=== PATIENT | male | born 1975 | race Caucasian/White ===

== ENCOUNTER 2024-05-18 00:19 | Emergency (ER) | payer SELFPAY ==
[2024-05-18 00:24] VITALS: BP 129/91
--- NOTE | 2024-05-18 01:25 | ED.GENMED ---
History of Present Illness
General
Chief Complaint: Male Genito-Urinary Symptoms
Source: patient
Time Seen by Provider: 05/18/24 00:48
History of Present Illness
History of Present Illness:
This patient is a 48-year-old male who presents emergency department with complaints that have been ongoing for some time. He states that he had a hernia repair on February 28, was seen in follow-up and was 'cleared' to resume normal activities. He
says he was doing some work and lifted something heavy and got severe pain in the right inguinal area. He was seen by his surgeon as well as an emergency department, was diagnosed with a seroma. He then was seen again by his surgeon because of
continued symptoms associated with urinary frequency and occasional urinary dribbling. He states he was told by the surgeon 'there is nothing more I can do'. He then saw a urologist and was diagnosed with BPH and started on doxycycline and Flomax.
He notes that his urinary symptoms have improved. He denies dysuria, fever, chills, flank pain, suprapubic pain. However, he now has developed ED and has continued discomfort in the right lower inguinal area. He saw [facility] surgeon and
is due to get an MRI regarding. At that time, he pointed out to the surgeon that there was a being just superior to the base of his penis on the right side that look like it was prominent. Tonight, the vein became even more prominent and he got
concerned that maybe he would develop a clot that could cause a PE which prompted his visit here. Patient denies testicular pain, rectal pain, nausea, vomiting, or other complaints.
Past History
Past History
ED Past Medical History: Other (glaucoma)
ED Past Surgical History: Other (Hernia)
Social History
Tobacco: Non-smoker
Alcohol: None
Drug: None
Personal:
Employment: Employed
Phy Exam
Physical Exam
Physical Exam:
GENERAL: Alert , in no apparent distress
EYE: pupils equal and reactive
NECK: Supple, no significant adenopathy.
ENT: o/p clr, mmm.
CARDIAC: Regular rate and rhythm .
LUNGS: Clear breath sounds bilaterally, no acute respiratory distress, no wheezes/rales/rhonchi
ABDOMEN: Soft, without focal tenderness, no r/g, no cvat
NEUROLOGICAL: Alert and oriented, no focal neuro deficits
SKIN: Warm and dry, skin intact.
MUSCULOSKELETAL: No edema, well perfused.
PSYCH: Normal and appropriate interaction.
: (James YANG present) nontender testicles bilaterally, no abnl noted of penis, no ttp noted of inguinal area. There is a sl prominent vein noted at base of penis, nontnder, small.
Course
Vital Signs
Initial and Last Documented VS:
Initial Vital Signs
Temp Pulse Resp BP Pulse Ox
98.3 F 73 20 129/91 98
05/18/24 00:24 05/18/24 00:24 05/18/24 00:24 05/18/24 00:24 05/18/24 00:24
Last Documented Vital Signs
Temp Pulse Resp BP Pulse Ox
98.3 F 73 20 129/91 100
05/18/24 00:24 05/18/24 00:24 05/18/24 00:24 05/18/24 00:24 05/18/24 01:08
Update Note
Update Note:
Patient presents to the Emergency Department with ____prominent vein in the area
Number and Complexity of Problems Addressed at the Encounter
� Chronic conditions affecting care:
� Acute Exacerbation and/or Progression of Chronic Illness:
� Differential Diagnosis includes: But not limited to varicocele, seroma, etc.
Amount and/or Complexity of Data to be Reviewed and Analyzed
� I performed an independent evaluation of and my interpretation is:
EKG:
CT:
Xrays:
Laboratory Studies:
Other:
� Review of other/old records reveals:
� Clinical information was obtained by an independent historian:
� Prescriptions/Medications Considered but not given:
� Further testing considered but not performed:
Risk of Complications and/or Morbidity or Mortality of Patient Management
� Social determinants of health affecting care:
� Discussion with other providers (PCP, Hospitalists, Consultants, etc):
� Escalation of care including admission/observation vs risk of discharge considered: Long discussion with patient, clinically I do not have concern for a clot in this superficial minimally prominent vein. I do believe he
requires enhanced evaluation as an outpatient which he is in the process of doing. I will refer him to both a neurologist as well. No clinical concern for testicular torsion, UTI, strangulated hernia, etc.
ED Attending Note
-
Portions of this chart may have been created with voice recognition software.� Occasional wrong word or��sound alike� substitutions may have occurred due to the inherent limitations of voice recognition software.
Discharge Plan
Departure
Patient Disposition: Home (Routine Discharge)
Date of Disposition: 05/18/24
Time of Disposition: 02:00
Patient with high blood pressure during this ER visit?: Yes
Condition: Good
Discharge Problem:
urinary frequency
Instructions: BLOOD PRESSURE
Referrals:
Daron Orantes MD [Family Provider] -
Valdo Murdock MD [Active] - Next open appointment
Activity Restrictions/Additional Instructions:
IF YOU DEVELOP FEVER, VOMITING, DIFFICULTY URINATING, BLEEDING, SWELLING, INCREASING/NEW PAIN, OR OTHER WORRISOME SIGNS, GO TO THE ER IMMEDIATELY!
Interventions
Interventions:
*Risk Screen - Suicide Last Done: 05/18/24 00:24
*General Assessment Last Done: 05/18/24 00:24
*Neglect/Abuse Screening Last Done: 05/18/24 00:24
ED- Fall Risk Assessment Last Done: 05/18/24 00:24
*ED COVID-19 Vaccine History Last Done: 05/18/24 00:24
ED-Male Genitourinary Assessment Last Done: 05/18/24 01:08
Discharge Date and Time
Print Language: DUTCH
== END 2024-05-18 02:05 | disposition home or self-care (01) ==
LOC: EMR 00:19
PROVIDERS: EMERGENCY PHYSICIAN Emergency Medicine; FAMILY PHYSICIAN Family Medicine
DX: R35.0 Frequency of micturition (principal); H40.9 Unspecified glaucoma
CPT/HCPCS: 99282

== ENCOUNTER 2024-06-02 13:45 | Emergency (ER) | payer OTHER, SELFPAY ==
[2024-06-02 14:00] VITALS: BP 121/83
--- NOTE | 2024-06-02 15:12 | ED.GENMED ---
History of Present Illness
<Marixa Gooden PA-C - Last Filed: 06/02/24 21:03>
General
Chief Complaint: Male Genito-Urinary Symptoms
Source: patient
Time Seen by Provider: 06/02/24 14:53
History of Present Illness
History of Present Illness:
49yoM with a history of a recent right inguinal hernia repair in February 2024 presenting for evaluation of difficulty urinating. Patient has been having ongoing right inguinal pain since March. He has also been having difficulty urinating and states he
is having urinary leakage. He has been seen multiple times by different urologists and general surgeons for his symptoms. He was placed on doxycycline about a month ago for possible prostatitis which he is almost complete with. He was also
prescribed Flomax which seemed to help his urinary leakage. He was seen by a new urologist 3 days ago and he was instructed to stop Flomax and to start a new medication, mirabegron, which he did not start due to fear of side effects. His urinary
leakage seems to have worsened since stopping the Flomax. He had an MRI of his pelvis last week which was reportedly normal although the report is not available for review. He also reports intermittent episodes of his penis becoming a purple color.
This seems to occur when he is sitting in his car and resolves after changing his position. He is worried that he may have a pudendal nerve injury or a possible blood flow issue to the penis. He is very frustrated with his symptoms and decided to
come to the ED for evaluation. He denies any fevers, vomiting, flank pain, testicular pain.
Past History
<Marixa Gooden PA-C - Last Filed: 06/02/24 21:03>
Past History
ED Past Medical History: Other (glaucoma)
ED Past Surgical History: Other (Hernia)
Social History
Tobacco: Non-smoker
Alcohol: None
Drug: None
Personal:
Employment: Employed
Phy Exam
<Marixa Gooden PA-C - Last Filed: 06/02/24 21:03>
General Physical Exam
General Presentation: well appearing
General age: appears stated age
General Skin: warm and dry
General Habitus: normal
General Mental: alert
Gastrointestinal Exam
Gastrointestinal Exam: soft, non distended and tender (Minimal tenderness in suprapubic region)
Genitourinary Exam Male
Exam Male: circumcised, no discharge, normal external genitalia, normal testicular exam, no evidence of trauma, no lesions and no testicular swelling
Skin Exam
Skin Exam: normal color and warm/dry
Psychiatric Exam
Psychiatric Exam: normal mood/affect
Course
<Marixa Gooden PA-C - Last Filed: 06/02/24 21:03>
Orders/Labs/Results
Orders:
Orders
06/02/24 14:54
Bladder Scan- Treatment ONCE
06/02/24 15:19
Urinalysis Reflex To Culture Urgent
Date Specimen was Collected: 06/02/24
Time Specimen was Collected: 14:56
Vital Signs
Initial and Last Documented VS:
Initial Vital Signs
Temp Pulse Resp BP Pulse Ox
36.6 C 96 16 121/83 98
06/02/24 14:00 06/02/24 14:00 06/02/24 14:00 06/02/24 14:00 06/02/24 14:00
Last Documented Vital Signs
Temp Pulse Resp BP Pulse Ox
36.6 C 91 18 123/74 99
06/02/24 14:00 06/02/24 17:41 06/02/24 17:41 06/02/24 17:41 06/02/24 17:41
<Ezra Galvez MD - Last Filed: 06/02/24 23:25>
Orders/Labs/Results
Orders:
Orders
06/02/24 14:54
Bladder Scan- Treatment ONCE
06/02/24 15:19
Urinalysis Reflex To Culture Urgent
Date Specimen was Collected: 06/02/24
Time Specimen was Collected: 14:56
Vital Signs
Initial and Last Documented VS:
Initial Vital Signs
Temp Pulse Resp BP Pulse Ox
36.6 C 96 16 121/83 98
06/02/24 14:00 06/02/24 14:00 06/02/24 14:00 06/02/24 14:00 06/02/24 14:00
Last Documented Vital Signs
Temp Pulse Resp BP Pulse Ox
36.6 C 91 18 123/74 99
06/02/24 14:00 06/02/24 17:41 06/02/24 17:41 06/02/24 17:41 06/02/24 17:41
<Marixa Gooden PA-C - Last Filed: 06/02/24 21:03>
MDM/Problems Addressed
Differential Diagnosis Includes:
49yoM here with R inguinal pain and difficulty urinating x several months since undergoing hernia repair surgery with mesh. Has been seen by multiple specialists for the same. Vitals stable and he is well appearing. External genitalia appears normal
on exam. Mild suprapubic tenderness present. Differential diagnosis includes but is not limited to: UTI, overflow incontinence, urinary retention, pain 2/2 mesh
Initial ED plan: Check PVR and UA. No indication for imaging at this time.
<Marixa Gooden PA-C - Last Filed: 06/02/24 21:03>
*Critical Care Note
Total Time (30-74mins, 75-104mins- exclusive of procedures): Not Applicable
<Marixa Gooden PA-C - Last Filed: 06/02/24 21:03>
Update Note
Update Note:
UA bland without microscopic hematuria or signs of infection. Postvoid residual is 0cc. No indication for further workup at this time. He was encouraged to f/u with urology. He is also planning on scheduling an appt with a pudendal math specialist
in [place]. He was discharged in stable condition.
ED Attending Note
<Marixa Gooden PA-C - Last Filed: 06/02/24 21:03>
-
Portions of this chart may have been created with voice recognition software.� Occasional wrong word or��sound alike� substitutions may have occurred due to the inherent limitations of voice recognition software.
<zEra Galvez MD - Last Filed: 06/02/24 23:25>
ED Attending Note
Patient seen and examined by attending physician: Yes
ED Attending Note:
I have seen and evaluated the patient with a [id number] encounter. I have spoken to the advance practicer provider and involved in the medical history, the physical exam, medical decision making.
Evaluation and management service: agree unless noted differently below.
Results interpretation: agree unless noted differently below.
Focused HPI: 49-year-old male with history as documented presents to the emergency room for evaluation of right groin pain and also some urinary difficulties. Patient is chiefly concerned because he says that since a right inguinal hernia repair
with mesh a few months ago he has been noticing some pain just to the right of the base of his penis in his groin and he says that when he stands he feels a small bump there. He also says that has been having some difficulty urinating over the past
few days. Has been seen by general surgery as well as urology, had been on Flomax but upon seeing urologist few days ago was told to discontinue this in favor of mirabegron. He also reports that he has been having some difficulty getting an
erection. He had a recent MRI as an outpatient which showed no significant lumbar disease, no muscular tears, no clear signs of a hernia.
Physical exam: Awake alert not in distress. Ambulatory with normal gait. No weakness in the legs. He has normal circumcised penis. No palpable hernia. No palpable mass in the area of concern. Normal testicular lie with no scrotal swelling.
Medical Decision Makin-year-old male presents for evaluation of groin discomfort since surgery in March also having some urinary issues. Already seen by general surgery (Dr. Crum) as well as urology. Urinalysis normal here, no postvoid
residual on bladder scan. Low suspicion for emergent pathology, stable for discharge to continue follow-up with specialist as outpatient.
Discharge Plan
Departure
Patient Disposition: Home (Routine Discharge)
Date of Disposition: 06/02/24
Time of Disposition: 18:16
Patient with high blood pressure during this ER visit?: No
Discharge Problem:
Groin pain
Referrals:
Daron Orantes MD [Family Provider] -
Jack Crum MD [Active] - Keep scheduled appt
Activity Restrictions/Additional Instructions:
Thank you for visiting the Emergency Department at [facility].
1. Please schedule a follow up appointment as directed. Call first thing tomorrow morning to make an appointment.
2. If indicated, please take your medications as instructed and indicated on discharge paperwork.
3. If any of your symptoms do not improve, or persist, or become more severe within 6-12 hours, please return to the emergency department for further care.
4. Please return to the emergency department if you develop a headache, neck pain/stiffness, fever greater than 100.4F, chest pain, shortness of breath, persistent nausea, vomiting, slurred speech, difficulty walking, numbness/tingling, weakness,
signs of infection or any other symptoms that are worrisome to you.
Please call [phone] if you have any questions.
Interventions
Interventions:
*Risk Screen - Suicide Last Done: 06/02/24 14:00
*General Assessment Last Done: 06/02/24 14:00
*Neglect/Abuse Screening Last Done: 06/02/24 14:00
ED- Fall Risk Assessment Last Done: 06/02/24 14:54
*Nursing Disposition Last Done: 06/02/24 18:18
ED-Male Genitourinary Assessment Last Done: 06/02/24 14:54
Discharge Date and Time
Discharge Date/Time: 06/02/24 18:38
Print Language: SPANISH
[2024-06-02 15:33] LABS: Urine Albumin Negative (Neg - Trace); Urine Bilirubin Negative (Negative); Urine Character Clear (Clear); Urine Color Yellow; Urine Glucose Negative (Negative); Urine Ketone Negative (Negative); Urine Leukocyte Negative (Negative); Urine Nitrite Negative (Negative); Urine Occult Blood Negative (Negative); Urine Urobilinogen Negative (Neg - 1+)
[2024-06-02 17:41] VITALS: BP 123/74
== END 2024-06-02 18:38 | disposition home or self-care (01) ==
LOC: EMR 13:45
PROVIDERS: Physician Assistant; EMERGENCY PHYSICIAN Emergency Medicine; FAMILY PHYSICIAN Family Medicine
DX: R10.31 Right lower quadrant pain (principal); R39.198 Other difficulties with micturition; H40.9 Unspecified glaucoma; Z88.5 Allergy status to narcotic agent
CPT/HCPCS: 99283; 51798; 81003

== ENCOUNTER 2024-06-04 08:48 | Emergency (ER) | payer SELFPAY ==
[2024-06-04 09:07] VITALS: BP 133/98
[2024-06-04 09:57] VITALS: BMI 23.4
[2024-06-04 10:03] VITALS: BP 122/86
--- NOTE | 2024-06-04 10:21 | ED.GENMED ---
History of Present Illness
General
Chief Complaint: Chest Pain
Source: patient
Exam Limitations: none
Time Seen by Provider: 06/04/24 10:02
Nursing documentation reviewed up to this point in time: agreed with
History of Present Illness
History of Present Illness:
49-year-old male presents the emergency department complaining of left lower quadrant abdominal pain, constipation and a panic attack. Pain began 3 days ago. He denies any chest pain at this time. The chest pain felt like previous panic attack.
He denies any chest pain at this time
Past History
Past History
ED Past Medical History: Other (glaucoma)
ED Past Surgical History: Other (Hernia)
Social History
Tobacco: Non-smoker
Alcohol: None
Drug: None
Personal:
Employment: Employed
Review of Systems
Review of Systems
Allergies reviewed?: Yes
All Other Systems: Not applicable
Constitutional: Reports no symptoms
EENT: Reports no symptoms
Respiratory: Reports no symptoms
Cardiac: Reports no symptoms
ABD/GI: Reports abdominal pain and constipated
: Reports no symptoms
Musculoskeletal: Reports no symptoms
Skin: Reports no symptoms
Neurological: Reports no symptoms
Endocrine: Reports no symptoms
Hematologic/Lymphatic: Reports no symptoms
Psychiatric: Reports anxiety
Phy Exam
Physical Exam
Physical Exam:
Physical Exam
General: no apparent distress, not acutely ill
Neck: supple. no meningeal signs. normal posterior pharynx
Heart: s1/s2 regular rate and rhythm, no murmur. equal radial
pulses.
HEENT: Pupils equal round reactive to light, EOMI
Lungs: no acute respiratory distress. clear bilaterally
Abdomen: normal bowel sounds. Left lower quadrant tenderness. No CVAT
Neuro: alert and oriented. no focal neurological deficits cranial nerves II through XII intact
Skin: no rash
Psychiatric: well kept. interactive and cooperative
Extremities: no edema. no calf tenderness. negative homans. good distal pulses
Scores
Heart Score for Chest Pain Patients
STEMI patient?: Not applicable
Course
Orders/Labs/Results
Orders:
Orders
06/04/24 08:50
ECG [Electrocardiogram (*1)] Urgent
Reason for Study: Chest Pain
EKG- Treatment ONCE
06/04/24 10:18
Iohexol [Omnipaque] See Protocol PO NOW STA
06/04/24 10:20
CT Abd/pel W Iv And Oral Contr Urgent
Comment:
Reason For Exam: LLQ abd pain 3 days
06/04/24 10:41
Complete Blood Count/With Diff Urgent
Comprehensive Metabolic Panel Urgent
Lipase Urgent
06/04/24 13:12
Urinalysis Reflex To Culture Urgent
Date Specimen was Collected: 06/04/24
Time Specimen was Collected: 12:56
Abnormal Lab Results
06/04/24
10:41
WBC 4.4 L 10^3/uL
(4.8-10.8)
Glucose 106 H mg/dl
(70-99)
Total Bilirubin 1.4 H mg/dl
(0.2-1.3)
06/04/24 10:41
06/04/24 10:41
Vital Signs
Initial and Last Documented VS:
Initial Vital Signs
Temp Pulse Resp BP Pulse Ox
98 F 81 18 133/98 99
06/04/24 09:07 06/04/24 09:07 06/04/24 09:07 06/04/24 09:07 06/04/24 09:07
Last Documented Vital Signs
Temp Pulse Resp BP Pulse Ox
98 F 62 14 121/80 99
06/04/24 09:07 06/04/24 12:53 06/04/24 12:53 06/04/24 15:09 06/04/24 15:10
MDM/Problems Addressed
Differential Diagnosis Includes:
Constipation, diverticulitis
MDM/Problems Addressed:
49-year-old male with left lower quadrant abdominal pain, likely due to constipation. CT abdomen pelvis pending.
*Radiology
Radiology exam reviewed: radiology read reviewed (ct a/p nad, multiple indeterminate splenic lesions)
*Pulse Oximetry
Patient hypoxic: no
*EKG
Interpreted by ED Provider?: Yes
EKG Intrepretation Date: 06/04/24
EKG Intrepretation Time: 08:56
Interpretation: normal
Comparison EKG: no comparison EKG present
Heart Rate: 84
Rate: normal
Rhythm: sinus
[place]: normal axis
Interval: normal interval
QRS Pattern: normal QRS
Ischemia: no ischemia
*Critical Care Note
Total Time (30-74mins, 75-104mins- exclusive of procedures): Not Applicable
Patient Management
Social determinants of health affecting care: Living situation
Escalation/DeEscalation of care consider admission/obs:
Admit not indicated
ED Attending Note
-
Portions of this chart may have been created with voice recognition software.� Occasional wrong word or��sound alike� substitutions may have occurred due to the inherent limitations of voice recognition software.
Discharge Plan
Departure
Patient Disposition: Home (Routine Discharge)
Date of Disposition: 06/04/24
Time of Disposition: 14:59
Patient with high blood pressure during this ER visit?: Yes
Condition: Good
Discharge Problem:
Abdominal pain
Instructions: Constipation, Adult ED, Abdominal pain in adults - Discharge instructions, BLOOD PRESSURE
Referrals:
Daron Orantes MD [Family Provider] - Call in 1-3 days for appt
Interventions
Interventions:
*Risk Screen - Suicide Last Done: 06/04/24 09:07
*General Assessment Last Done: 06/04/24 09:07
*Neglect/Abuse Screening Last Done: 06/04/24 09:07
ED- Fall Risk Assessment Last Done: 06/04/24 09:57
*ED COVID-19 Vaccine History Last Done: 06/04/24 09:57
*Nursing Disposition Last Done: 06/04/24 15:14
ED- Cardiac Assessment Last Done: 06/04/24 09:57
Discharge Date and Time
Discharge Date/Time: 06/04/24 15:14
Print Language: OCCITAN
[2024-06-04] MEDS: OMNIPAQUE 50 ML PO (10:33)
[2024-06-04 11:00] VITALS: BP 131/92
[2024-06-04 11:08] LABS: % Basophils 0.7 % (0-2); % Eosinophils 2.5 % (0-6); % Immature Granulocytes 0.5 % (0-0.5); % Lymphocytes 28.6 % (20.5-51.1); % Neutrophils 59.7 % (42.2-75.2); Absolute Eosinophils 0.1 10^3/uL (0-0.7); Absolute Lymphocytes 1.3 10^3/uL (1.2-3.4); Absolute Monocytes 0.4 10^3/uL (0.1-0.6); Absolute Neutrophils 2.6 10^3/uL (1.4-6.5); Hematocrit 39.8 % (39.0-52.0); Hemoglobin 14.2 g/dL (13.0-18.0); Mean Corp Hgb Conc. 35.7 g/dL (33.0-37.0); Mean Corpuscular Hgb 29.3 pg (27.0-31.0); Mean Corpuscular Volume 82.2 fL (80.0-94.0); Mean Platelet Volume 9.2 fL (7.4-10.4); Nucleated Red Blood Cells % 0 % (-); Platelet Count 194 10^3/uL (130-400); Red Blood Cell Count 4.84 10^6/uL (4.70-6.10); Red Cell Dist. Width 12.4 % (11.5-14.5); White Blood Cell Count 4.4 10^3/uL (4.8-10.8)
[2024-06-04 11:17] LABS: ALT (SGPT) 22 U/L (0-50); AST (SGOT) 23 U/L (17-59); Albumin 4.8 g/dl (3.5-5.0); Alkaline Phosphatase 46 U/L (38-126); Blood Urea Nitrogen 12 mg/dl (9-20); Calcium 10.2 mg/dl (8.4-10.2); Carbon Dioxide 29 mmol/L (22-30); Chloride 98 mmol/L (98-107); Estimated Creatinine Clearance 103 ml/min; Glucose 106 mg/dl (70-99); Lipase 104 U/L (23-300); Potassium 4.4 mmol/L (3.5-5.1); Sodium 136 mmol/L (135-145); Total Bilirubin 1.4 mg/dl (0.2-1.3); Total Protein 7.4 g/dl (6.3-8.2); eGFR > 60.00
[2024-06-04 13:44] LABS: Urine Albumin Negative (Neg - Trace); Urine Bilirubin Negative (Negative); Urine Character Clear (Clear); Urine Color Yellow; Urine Glucose Negative (Negative); Urine Ketone Negative (Negative); Urine Leukocyte Negative (Negative); Urine Nitrite Negative (Negative); Urine Occult Blood Negative (Negative); Urine Urobilinogen Negative (Neg - 1+)
[2024-06-04 15:09] VITALS: BP 121/80
== END 2024-06-04 15:14 | disposition home or self-care (01) ==
LOC: EMR 08:48
PROVIDERS: EMERGENCY PHYSICIAN Emergency Medicine; FAMILY PHYSICIAN Family Medicine
DX: R10.32 Left lower quadrant pain (principal); K59.00 Constipation, unspecified; F41.0 Panic disorder [episodic paroxysmal anxiety]; R07.9 Chest pain, unspecified; R03.0 Elevated blood-pressure reading, without diagnosis of hypertension; D73.9 Disease of spleen, unspecified; H40.9 Unspecified glaucoma; F41.9 Anxiety disorder, unspecified; Z88.5 Allergy status to narcotic agent
CPT/HCPCS: 99285; 74177; 80053; 81003; 83690; 85025; 93005; Q9967

== ENCOUNTER 2024-06-18 17:36 | Emergency (ER) | payer OTHER, SELFPAY ==
[2024-06-18 17:37] VITALS: BP 146/95
[2024-06-18 17:58] LABS: % Basophils 0.6 % (0-2); % Eosinophils 1.1 % (0-6); % Immature Granulocytes 0.3 % (0-0.5); % Lymphocytes 33.6 % (20.5-51.1); % Monocytes 6.8 % (1.7-9.3); % Neutrophils 57.6 % (42.2-75.2); Absolute Eosinophils 0.1 10^3/uL (0-0.7); Absolute Lymphocytes 2.2 10^3/uL (1.2-3.4); Absolute Monocytes 0.5 10^3/uL (0.1-0.6); Absolute Neutrophils 3.8 10^3/uL (1.4-6.5); Hematocrit 41.1 % (39.0-52.0); Hemoglobin 14.9 g/dL (13.0-18.0); Mean Corp Hgb Conc. 36.3 g/dL (33.0-37.0); Mean Corpuscular Hgb 28.9 pg (27.0-31.0); Mean Corpuscular Volume 79.8 fL (80.0-94.0); Mean Platelet Volume 9.3 fL (7.4-10.4); Nucleated Red Blood Cells % 0 % (-); Platelet Count 250 10^3/uL (130-400); Red Blood Cell Count 5.15 10^6/uL (4.70-6.10); Red Cell Dist. Width 12.2 % (11.5-14.5); White Blood Cell Count 6.6 10^3/uL (4.8-10.8)
[2024-06-18 18:15] LABS: ALT (SGPT) 22 U/L (0-50); AST (SGOT) 25 U/L (17-59); Albumin 5.1 g/dl (3.5-5.0); Alkaline Phosphatase 57 U/L (38-126); Blood Urea Nitrogen 9 mg/dl (9-20); Calcium 10.4 mg/dl (8.4-10.2); Carbon Dioxide 31 mmol/L (22-30); Chloride 100 mmol/L (98-107); Glucose 137 mg/dl (70-99); Potassium 4.2 mmol/L (3.5-5.1); Sodium 143 mmol/L (135-145); Total Protein 8.2 g/dl (6.3-8.2); eGFR > 60.00
[2024-06-18 18:25] LABS: Troponin I < 0.012 ng/ml
--- NOTE | 2024-06-18 18:54 | ED.GENMED ---
History of Present Illness
General
Chief Complaint: Headache
Source: patient
Exam Limitations: none
Time Seen by Provider: 06/18/24 18:08
Nursing documentation reviewed up to this point in time: agreed with
History of Present Illness
History of Present Illness:
Patient to ED with multiple complaints. States he had hernia repair surgery in the spring. 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 He has developed severe anxiety about this. A few weeks ago he was
admitted to a hospital in [place] due to left head numbness. States he was there for 2 days, had neg MRI and discharged. Today he reports left eye pressure. He has a history of glaucoma and is concerned about increased eye pressure. Also requesting
anxiety and sleep medication. Brought self to ED for eval.
Past History
Past History
ED Past Medical History: Other (glaucoma)
ED Past Surgical History: Other (Hernia)
Social History
Tobacco: Non-smoker
Alcohol: None
Drug: None
Personal:
Employment: Employed
Review of Systems
Review of Systems
Allergies reviewed?: Yes
All Other Systems: ROS reviewed and negative except as documented in HPI and ROS
Constitutional: Reports no symptoms
EENT: Reports other (left eye pressure)
Respiratory: Reports no symptoms
Cardiac: Reports no symptoms
ABD/GI: Reports no symptoms
Musculoskeletal: Reports no symptoms
Skin: Reports no symptoms
Neurological: Reports other (pudendalneuropathy)
Psychiatric: Reports no symptoms
Phy Exam
General Physical Exam
General Presentation: well appearing and no apparent distress
General age: appears stated age
General Skin: warm and dry
General Habitus: normal
General Mental: alert
General Hydration: appears well hydrated
Eye Exam
Eye Exam: PERRL, EOMI, conjunctiva normal, globe normal and other (Brown L15, R17)
Neurological Exam
Neurological Exam: alert, oriented x3, no motor deficits and normal gait
Musculoskeletal Exam
Musculoskeletal Exam: full ROM and neuro vasc intact
Skin Exam
Skin Exam: normal color, warm/dry and no rash
Psychiatric Exam
Psychiatric Exam: normal mood/affect
Course
Orders/Labs/Results
Orders:
Orders
06/18/24 17:41
Electrocardiogram (*1) Urgent
Reason for Study: Chest Pain
06/18/24 17:42
EKG- Treatment ONCE
06/18/24 17:51
Complete Blood Count/With Diff Urgent
Comprehensive Metabolic Panel Urgent
Troponin I Urgent
06/18/24 18:44
Tetracaine HCl [Tetracaine 0.5% Ophthalmic Solution] 1 drop .ROUTE .STK-MED ONE
Abnormal Lab Results
06/18/24
17:51
MCV 79.8 L fL
(80.0-94.0)
Carbon Dioxide 31 H mmol/L
(22-30)
Glucose 137 H mg/dl
(70-99)
Calcium 10.4 H mg/dl
(8.4-10.2)
Albumin 5.1 H g/dl
(3.5-5.0)
06/18/24 17:51
06/18/24 17:51
Vital Signs
Initial and Last Documented VS:
Initial Vital Signs
Temp Pulse Resp BP Pulse Ox
98.2 F 104 20 146/95 97
06/18/24 17:37 06/18/24 17:37 06/18/24 17:37 06/18/24 17:37 06/18/24 17:37
Last Documented Vital Signs
Temp Pulse Resp BP Pulse Ox
98.2 F 104 20 146/95 97
06/18/24 17:37 06/18/24 17:37 06/18/24 17:37 06/18/24 17:37 06/18/24 17:37
*Critical Care Note
Total Time (30-74mins, 75-104mins- exclusive of procedures): Not Applicable
Update Note
Update Note:
NO concerning findings on exam to day. Referred back to PCP for anxiety and sleep medications.
ED Attending Note
-
Portions of this chart may have been created with voice recognition software.� Occasional wrong word or��sound alike� substitutions may have occurred due to the inherent limitations of voice recognition software.
Discharge Plan
Departure
Patient Disposition: Home (Routine Discharge)
Date of Disposition: 06/18/24
Time of Disposition: 18:53
Patient with high blood pressure during this ER visit?: No
Condition: Good
Covid-19: Not Applicable
Discharge Problem:
Headache
Instructions: Headache, Adult (DC)
Referrals:
Daron Orantes MD [Family Provider] -
Interventions
Interventions:
*Risk Screen - Suicide Last Done: 06/18/24 18:05
*General Assessment Last Done: 06/18/24 18:05
*Neglect/Abuse Screening Last Done: 06/18/24 18:05
ED- Fall Risk Assessment Last Done: 06/18/24 18:05
*ED COVID-19 Vaccine History Last Done: 06/18/24 18:05
ED- Neurological Assessment Last Done: 06/18/24 18:05
Discharge Date and Time
Print Language: [id number]
== END 2024-06-18 19:01 | disposition home or self-care (01) ==
LOC: EMR 17:36
PROVIDERS: EMERGENCY PHYSICIAN Emergency Medicine; FAMILY PHYSICIAN Family Medicine
DX: R51.9 Headache, unspecified (principal); H40.9 Unspecified glaucoma
CPT/HCPCS: 99284; 80053; 84484; 85025; 93005

== ENCOUNTER 2024-06-28 18:47 | Emergency (ER) | payer OTHER, SELFPAY ==
[2024-06-28 18:48] VITALS: BMI 23.9
[2024-06-28 18:57] VITALS: BP 140/87
[2024-06-28 20:00] VITALS: BP 132/92
--- NOTE | 2024-06-28 21:02 | ED.GENMED ---
History of Present Illness
General
Chief Complaint: Anxiety
Source: patient
Exam Limitations: none
Time Seen by Provider: 06/28/24 20:29
History of Present Illness
History of Present Illness:
This is a 49 year old male that comes in with c/o his ear popping. States that he has been having panic attacks. States that his BP then goes up and his left ear is popping. States that this has been going on for 2-3 weeks and it happens 2-3 times
daily. States that he had a MRI of his brain and it was negative. States that he has left sided headache pain and he feels that his hearing is decreased. Denies any fever, chills, chest pain, SOB, abd pain, nausea, vomiting, diarrhea, dizziness,
urinary burning.
Past History
Past History
ED Past Medical History: Psychiatric (Anxiety)
ED Past Surgical History: Other (Hernia right side, Glaucoma sx as child)
Social History
Tobacco: Non-smoker
Alcohol: None
Drug: None
Personal:
Living: alone
Employment: Employed
Review of Systems
Review of Systems
All Other Systems: ROS reviewed and negative except as documented in HPI and ROS
Constitutional: Reports no symptoms; Denies fever or chills
EENT: Reports other (Left ear popping and feels that his hearing is changing)
Respiratory: Reports no symptoms; Denies cough or trouble breathing
Cardiac: Reports no symptoms; Denies chest pain
ABD/GI: Reports no symptoms; Denies abdominal pain, nausea, vomiting or diarrhea
: Reports no symptoms; Denies dysuria, frequency or urgency
Musculoskeletal: Reports no symptoms
Skin: Reports no symptoms
Neurological: Reports headache (Left sided); Denies dizzy
Psychiatric: Reports no symptoms
Phy Exam
General Physical Exam
General Presentation: well appearing and no apparent distress
General age: appears stated age
General Skin: warm and dry
General Habitus: normal
General Mental: alert
General Hydration: appears well hydrated
ENT Exam
ENT Exam: TM's normal, pharynx normal and neck supple
Eye Exam
Eye Exam: EOMI
Cardiovascular Exam
Cardiovascular Exam: regular rate/rhythm, no edema, no murmur and normal peripheral pulses
Pulmonary Exam
Pulmonary Exam: lungs clear, no respiratory distress, no rales, chest non tender, no crackles, no rhonchi, no wheezing and no cough
Gastrointestinal Exam
Gastrointestinal Exam: normal bowel sounds, non tender, soft, no organomegaly, no pulsatile mass and non distended
Musculoskeletal Exam
Musculoskeletal Exam: full ROM and no edema
Skin Exam
Skin Exam: normal color, warm/dry, no rash and no petechia
Psychiatric Exam
Psychiatric Exam: anxious
Course
Orders/Labs/Results
Orders:
Orders
06/28/24 20:52
CT Head W/o Iv Contrast Urgent
Comment:
Reason For Exam: lEFT SIDED HEAD PAIN, pAIN IN EAR
06/28/24 21:04
Acetaminophen [Tylenol] 1,000 mg PO NOW STA
Vital Signs
Initial and Last Documented VS:
Initial Vital Signs
Temp Pulse Resp BP Pulse Ox
98.2 F 89 18 140/87 98
06/28/24 18:57 06/28/24 18:57 06/28/24 18:57 06/28/24 18:57 06/28/24 18:57
Last Documented Vital Signs
Temp Pulse Resp BP Pulse Ox
98.2 F 70 22 132/92 100
06/28/24 18:57 06/28/24 20:00 06/28/24 20:00 06/28/24 20:00 06/28/24 20:00
MDM/Problems Addressed
Differential Diagnosis Includes:
Anxiety, Headache
MDM/Problems Addressed:
This is a 49 year old male that comes in with c/o left sided headache pain and his ear is popping. States that he feels that when his BP goes up his ear is popping.
Patient recently had an MRI that was normal. Explained that his TM is normal ad there is no sign of bulging. Feel that patient needs to follow up with the family doctor for his anxiety and will give patient the name of an ENT specialist for further
evaluation. Patient is concerned about his head and would like a CT even after tried to explained that the MRI was more diagnostic. Patient feels that this will help relieve his anxiety. Will get CT scan.
Back into see patient. Explained that the CT of his head is normal. There is some Left sided ethmoid sinus mucosal thickening. Will have patient try Sudafed to help decrease the pressure. Patient to follow up with the PCP for further evaluation and
treatment of his anxiety. Patient to return with any concerns.
Chronic conditions affecting care: Psychiatric illness
Acute Exacerbation and/or Progression of Chronic Illness: Psychiatric illness
*Radiology
Radiology exam reviewed: radiology read reviewed (CT head-No acute intracranial abnormality noted. )
*Pulse Oximetry
Patient hypoxic: no
*EKG
Interpreted by ED Provider?: NA
Rate: EKG- N/A
*Rail Director Interpretation
Rate: Rail Director- N/A
*Critical Care Note
Total Time (30-74mins, 75-104mins- exclusive of procedures): Not Applicable
ED Attending Note
-
Portions of this chart may have been created with voice recognition software.� Occasional wrong word or��sound alike� substitutions may have occurred due to the inherent limitations of voice recognition software.
Discharge Plan
Departure
Patient Disposition: Home (Routine Discharge)
Date of Disposition: 06/28/24
Time of Disposition: 22:01
Patient with high blood pressure during this ER visit?: Yes
Condition: Good
Covid-19: Not Applicable
Discharge Problem:
Anxiety, Left-sided headache
Instructions: Anxiety, Adult (DC), Headache, Adult ED, BLOOD PRESSURE
Referrals:
Daron Orantes MD [Family Provider] - Follow up in 2-3 days
Activity Restrictions/Additional Instructions:
As discussed, your CT of the head is negative for any acute process. There is some left sided ethmoid sinus inflammation and this may be causing your Ear popping. Please try using Sudafed to help dry up the sinuses. Follow up with the family doctor
for further evaluation and treatment of your anxiety. You may take Tylenol 1000mg every 8 hours for pain. IF YOU HAVE ANY OTHER CONCERNS PLEASE RETURN TO THE EMERGENCY ROOM.
Interventions
Interventions:
*Risk Screen - Suicide Last Done: 06/28/24 18:57
*General Assessment Last Done: 06/28/24 18:57
*Neglect/Abuse Screening Last Done: 06/28/24 18:57
*ED COVID-19 Vaccine History Last Done: 06/28/24 18:57
ED-Psychological Assessment Last Done: 06/28/24 21:13
Discharge Date and Time
Print Language: ARABIC
[2024-06-28] MEDS: TYLENOL 1000 MG PO (21:12)
== END 2024-06-28 22:40 | disposition home or self-care (01) ==
LOC: EMR 18:47
PROVIDERS: EMERGENCY PHYSICIAN Emergency Medicine; FAMILY PHYSICIAN Family Medicine
DX: F41.9 Anxiety disorder, unspecified (principal); R51.9 Headache, unspecified
CPT/HCPCS: 99284; 70450

== ENCOUNTER → 2024-08-27 13:00 | Outpatient (REF) | payer OTHER, SELFPAY | LOC: RAD 13:00 | PROVIDERS: ATTENDING PHYSICIAN Urology; FAMILY PHYSICIAN Family Medicine | DX: R39.198 Other difficulties with micturition (principal) | CPT/HCPCS: 72191; Q9967 ==

== ENCOUNTER 2024-11-10 12:36 | Emergency (ER) | payer OTHER, SELFPAY ==
[2024-11-10 12:42] VITALS: BP 119/79
[2024-11-10 13:19] LABS: % Basophils 1.2 % (0-2); % Eosinophils 3.7 % (0-6); % Immature Granulocytes 0.2 % (0-0.5); % Lymphocytes 36.5 % (20.5-51.1); % Monocytes 9.6 % (1.7-9.3); % Neutrophils 48.8 % (42.2-75.2); Absolute Basophils 0.1 10^3/uL (0-0.2); Absolute Eosinophils 0.2 10^3/uL (0-0.7); Absolute Lymphocytes 1.5 10^3/uL (1.2-3.4); Absolute Monocytes 0.4 10^3/uL (0.1-0.6); Hematocrit 43.4 % (39.0-52.0); Hemoglobin 15.2 g/dL (13.0-18.0); Mean Corpuscular Hgb 28.7 pg (27.0-31.0); Mean Platelet Volume 9.4 fL (7.4-10.4); Nucleated Red Blood Cells % 0 % (-); Platelet Count 240 10^3/uL (130-400); Red Blood Cell Count 5.29 10^6/uL (4.70-6.10); Red Cell Dist. Width 12.1 % (11.5-14.5); White Blood Cell Count 4.1 10^3/uL (4.8-10.8)
[2024-11-10 13:21] LABS: Urine Albumin Trace (Neg - Trace); Urine Bilirubin Negative (Negative); Urine Character Clear (Clear); Urine Color Yellow; Urine Glucose Negative (Negative); Urine Ketone Negative (Negative); Urine Leukocyte Negative (Negative); Urine Nitrite Negative (Negative); Urine Occult Blood Negative (Negative); Urine Specific Gravity 1.025 (<1.030); Urine Urobilinogen Negative (Neg - 1+)
[2024-11-10 13:27] LABS: ALT (SGPT) 35 U/L (0-50); AST (SGOT) 24 U/L (17-59); Albumin 5.1 g/dl (3.5-5.0); Alkaline Phosphatase 51 U/L (38-126); Blood Urea Nitrogen 15 mg/dl (9-20); Calcium 9.8 mg/dl (8.4-10.2); Carbon Dioxide 30 mmol/L (22-30); Chloride 98 mmol/L (98-107); Glucose 90 mg/dl (70-99); Potassium 4.3 mmol/L (3.5-5.1); Sodium 137 mmol/L (135-145); Total Bilirubin 1.1 mg/dl (0.2-1.3); Total Protein 8.2 g/dl (6.3-8.2); eGFR > 60.00
--- NOTE | 2024-11-10 13:55 | ED.GENMED ---
History of Present Illness
<Marixa Gooden PA-C - Last Filed: 11/11/24 07:20>
General
Chief Complaint: Abdominal Pain
Source: patient
Exam Limitations: none
Time Seen by Provider: 11/10/24 13:31
History of Present Illness
History of Present Illness:
49yoM with a history of a right inguinal hernia repair in February 2024 presenting for evaluation of abdominal pain and constipation. Patient has been having chronic pain in his right groin since March 2024. He has been seen by multiple surgeons for the
same and is scheduled to have his mesh removed next month in [place]. Over the past several months, he has been having issues with constipation. He states his stool is small in caliber. He has been taking Dulcolax and MiraLAX intermittently
without much relief. Last bowel movement was 3 days ago. Patient feels very bloated with increased belching. He is worried that he has a bowel obstruction. He denies any urinary retention, vomiting, fevers. Of note, patient had a CT abdomen in
September 2024 in [place] for concern for appendicitis and imaging was reportedly normal.
Past History
<Marixa Gooden PA-C - Last Filed: 11/11/24 07:20>
Past History
ED Past Medical History: Psychiatric (Anxiety)
ED Past Surgical History: Other (Hernia right side, Glaucoma sx as child)
Social History
Tobacco: Non-smoker
Alcohol: None
Drug: None
Personal:
Living: alone
Employment: Employed
Phy Exam
<Marixa Gooden PA-C - Last Filed: 11/11/24 07:20>
General Physical Exam
General Presentation: well appearing and no apparent distress
General age: appears stated age
General Skin: warm and dry
General Habitus: normal
General Mental: alert
ENT Exam
ENT Exam: normocephalic
Pulmonary Exam
Pulmonary Exam: no respiratory distress
Gastrointestinal Exam
Gastrointestinal Exam: soft, non distended and other (+Tenderness in the RLQ and mild tenderness in the upper abdomen. Abdomen soft, non-distended. No rebound or guarding. )
Neurological Exam
Neurological Exam: alert
Seth Coma Scale
Eye Opening: Spontaneous
Verbal Response: Oriented
Motor Response: Obeys Commands
GCS Total Score: 15
Skin Exam
Skin Exam: normal color and warm/dry
Psychiatric Exam
Psychiatric Exam: normal mood/affect
<Nikita Vance Jr., PA-C - Last Filed: 11/10/24 17:59>
Seth Coma Scale
GCS Total Score: 15
Course
<Marixa Gooden PA-C - Last Filed: 11/11/24 07:20>
Orders/Labs/Results
Orders:
Orders
11/10/24 12:56
Complete Blood Count/With Diff Urgent
Comprehensive Metabolic Panel Urgent
Urinalysis Reflex To Culture Urgent
Date Specimen was Collected: 11/10/24
Time Specimen was Collected: 12:45
11/10/24 13:52
CT Abd/pel W Iv And Oral Contr Urgent
Comment:
Reason For Exam: RLQ pain, constipation
Iohexol [Omnipaque] See Protocol PO NOW STA
Abnormal Lab Results
11/10/24
12:56
WBC 4.1 L 10^3/uL
(4.8-10.8)
Monocytes % 9.6 H %
(1.7-9.3)
Albumin 5.1 H g/dl
(3.5-5.0)
11/10/24 12:56
11/10/24 12:56
Vital Signs
Initial and Last Documented VS:
Initial Vital Signs
Temp Pulse Resp BP Pulse Ox
97.9 F 69 16 119/79 98
11/10/24 12:42 11/10/24 12:42 11/10/24 12:42 11/10/24 12:42 11/10/24 12:42
Last Documented Vital Signs
Temp Pulse Resp BP Pulse Ox
97.9 F 66 16 115/78 99
11/10/24 12:42 11/10/24 16:26 11/10/24 16:26 11/10/24 16:26 11/10/24 16:26
<Nikita Vance Jr., PA-C - Last Filed: 11/10/24 17:59>
Orders/Labs/Results
Orders:
Orders
11/10/24 12:56
Complete Blood Count/With Diff Urgent
Comprehensive Metabolic Panel Urgent
Urinalysis Reflex To Culture Urgent
Date Specimen was Collected: 11/10/24
Time Specimen was Collected: 12:45
11/10/24 13:52
CT Abd/pel W Iv And Oral Contr Urgent
Comment:
Reason For Exam: RLQ pain, constipation
Iohexol [Omnipaque] See Protocol PO NOW STA
Abnormal Lab Results
11/10/24
12:56
WBC 4.1 L 10^3/uL
(4.8-10.8)
Monocytes % 9.6 H %
(1.7-9.3)
Albumin 5.1 H g/dl
(3.5-5.0)
11/10/24 12:56
11/10/24 12:56
Vital Signs
Initial and Last Documented VS:
Initial Vital Signs
Temp Pulse Resp BP Pulse Ox
97.9 F 69 16 119/79 98
11/10/24 12:42 11/10/24 12:42 11/10/24 12:42 11/10/24 12:42 11/10/24 12:42
Last Documented Vital Signs
Temp Pulse Resp BP Pulse Ox
97.9 F 66 16 115/78 99
11/10/24 12:42 11/10/24 16:26 11/10/24 16:26 11/10/24 16:26 11/10/24 16:26
<Marixa Gooden PA-C - Last Filed: 11/11/24 07:20>
MDM/Problems Addressed
Differential Diagnosis Includes:
49yoM here with abd pain and constipation. Abd pain has been ongoing x several months. C/o feeling bloated. Last BM 3 days ago. He is worried about a blockage. VSS. He is well-appearing in no acute distress. No signs of peritonitis on abdominal
exam. Differential diagnosis includes but is not limited to: Constipation, chronic abdominal pain, SBO, appendicitis
Initial ED plan: Labs and UA obtained in triage which are overall unremarkable including normal white count and renal function. Will obtain CT abdomen with IV and p.o. contrast.
<Nikita Vance Jr., PA-C - Last Filed: 11/10/24 17:59>
*Critical Care Note
Total Time (30-74mins, 75-104mins- exclusive of procedures): Not Applicable
<Nikita Vance Jr., PA-C - Last Filed: 11/10/24 17:59>
Update Note
Update Note:
3702: Ted Vance PA-C following up with CT results. Patient very well-appearing no distress. Found to have some incidental findings of the spleen and pancreatic region. He was advised for close outpatient follow-up. He does claim that he has had
assessment for this in the past and they were considered benign. Otherwise he was given Bentyl for possible IBS will follow-up closely with his surgeon that previously did the inguinal mesh.
ED Attending Note
<Marixa Gooden PA-C - Last Filed: 11/11/24 07:20>
-
Portions of this chart may have been created with voice recognition software.� Occasional wrong word or��sound alike� substitutions may have occurred due to the inherent limitations of voice recognition software.
Discharge Plan
Departure
Patient Disposition: Home (Routine Discharge)
Date of Disposition: 11/10/24
Time of Disposition: 17:56
Patient with high blood pressure during this ER visit?: No
Condition: Good
Covid-19: Not Applicable
Discharge Problem:
Abdominal pain, Splenic lesion
Instructions: Abdominal Pain
Prescriptions:
New
dicyclomine 20 mg tablet
20 mg PO QID PRN (Reason: abdominal pain) Qty: 10 0RF
Referrals:
Daron Orantes MD [Family Provider] -
Activity Restrictions/Additional Instructions:
You came to the emergency department today with concerns of ongoing abdominal discomfort. You are found to have incidental findings of a lesion near the spleen and pancreas. Please follow closely for further assessment of this. Otherwise can try
Bentyl to help with symptoms. Please follow closely with your surgeon. Return for any worsening, new or concerning symptoms.
Interventions
Interventions:
*Risk Screen - Suicide Last Done: 11/10/24 12:42
*General Assessment Last Done: 11/10/24 15:11
*Neglect/Abuse Screening Last Done: 11/10/24 12:42
ED- Fall Risk Assessment Last Done: 11/10/24 15:11
*Nursing Disposition Last Done: 11/10/24 18:04
OP-Vnkuge-Mlactftneg Assessment Last Done: 11/10/24 15:02
Discharge Date and Time
Discharge Date/Time: 11/10/24 18:04
Print Language: SAMI
[2024-11-10] MEDS: OMNIPAQUE 50 ML PO (14:13)
[2024-11-10 16:26] VITALS: BP 115/78
== END 2024-11-10 18:04 | disposition home or self-care (01) ==
LOC: EMR 12:36
PROVIDERS: EMERGENCY PHYSICIAN Student in an Organized Health Care Education/Training Program; FAMILY PHYSICIAN Family Medicine
DX: R10.9 Unspecified abdominal pain (principal); D73.89 Other diseases of spleen; K59.00 Constipation, unspecified; F41.9 Anxiety disorder, unspecified
CPT/HCPCS: 99284; 74177; 80053; 81003; 85025; Q9967

== ENCOUNTER → 2025-05-01 12:58 | Outpatient (REF) | payer OTHER, SELFPAY | LOC: RAD 12:58 | PROVIDERS: FAMILY PHYSICIAN Family Medicine | DX: K40.90 Unilateral inguinal hernia, without obstruction or gangrene, not specified as recurrent (principal) | CPT/HCPCS: 72192 ==

== ENCOUNTER 2025-08-26 01:49 | Emergency (ER) | payer OTHER, SELFPAY ==
--- NOTE | 2025-08-26 04:28 | ED.GENMED ---
History of Present Illness
<Nasrin Grubbs DO - Last Filed: 08/26/25 04:39>
General
Chief Complaint: Male Genito-Urinary Symptoms
Time Seen by Provider: 08/26/25 04:11
<Dany Roberto MD, Resident - Last Filed: 08/26/25 04:41>
General
Source: patient
History of Present Illness
History of Present Illness:
Patient is a 50-year-old male with PMH of right inguinal hernia s/p repair, pelvic floor dysfunction, and constipation who presents to the [facility] ED with concern for urinary retention. Patient received a Botox injection to his pelvic floor
muscles in June. Patient just returned to the area from [place], and he states that his urologist wanted him to get checked for urinary retention after his flight. No current symptoms. Patient last urinated approximately 10 hours ago,
though he states he also has not been drinking any fluids since that time. Patient's bladder scan in the ED showed just 15 mL of urine.
Past History
<Dany Roberto MD, Resident - Last Filed: 08/26/25 04:41>
Past History
ED Past Medical History: Psychiatric (Anxiety), Other (Constipation) and Other (R inguinal hernia)
ED Past Surgical History: Other (Hernia right side, Glaucoma sx as child)
Social History
Tobacco: Non-smoker
Alcohol: None
Drug: None
Personal:
Living: alone
Employment: Employed
Review of Systems
<Dany Roberto MD, Resident - Last Filed: 08/26/25 04:41>
Review of Systems
Constitutional: Reports no symptoms
Respiratory: Reports no symptoms
Cardiac: Reports no symptoms
ABD/GI: Reports no symptoms
: Reports no symptoms
Phy Exam
<Dany Roberto MD, Resident - Last Filed: 08/26/25 04:41>
Physical Exam
Physical Exam:
General: NAD. Conversant. Lying comfortably in bed.
GI: Soft, nontender. Nondistended.
CV: RRR. S1, S2 noted. No M/R/G.
Pulm: CTAB. No wheezes or crackles. Breathing comfortably.
Neuro: A&O x 3. NFD. CN II through XII grossly intact.
Psych: Anxious.
Course
<Nasrin Grubbs, DO - Last Filed: 08/26/25 04:39>
Vital Signs
Initial and Last Documented VS:
Initial Vital Signs
Resp
16
08/26/25 02:00
Last Documented Vital Signs
Resp
16
08/26/25 02:00
<Dany Roberto MD, Resident - Last Filed: 08/26/25 04:41>
Vital Signs
Initial and Last Documented VS:
Initial Vital Signs
Resp
16
08/26/25 02:00
Last Documented Vital Signs
Resp
16
08/26/25 02:00
<Dany Roberto MD, Resident - Last Filed: 08/26/25 04:41>
MDM/Problems Addressed
Differential Diagnosis Includes:
Anxiety
Dehydration
Urinary retention
MDM/Problems Addressed:
Assessment: Patient is a 50-year-old male with PMH of R inguinal hernia s/p repair, pelvic floor dysfunction, and constipation who presents to the [facility] ED with concern for urinary retention, though he does not have any current symptoms. Last
urinated approximately 10 hours ago, though his fluid intake has been decreased. Bladder scan shows 15 mL of fluid. No concern for urinary retention at this time.
Plan:
#Decreased urine output
Bladder scan
<Dany Roberto MD, Resident - Last Filed: 08/26/25 04:41>
*Pulse Oximetry
Patient hypoxic: no
*Critical Care Note
Total Time (30-74mins, 75-104mins- exclusive of procedures): Not Applicable
ED Attending Note
<Nasrin Grubbs DO - Last Filed: 08/26/25 04:39>
ED Attending Note
Patient seen and examined by attending physician: Yes
I performed a history and physical exam of patient and discussed management with resident, I reviewed resident's note and agree with documented findings and plan of care.: Yes
ED Attending Note:
50-year-old gentleman with history of chronic lower abdominal pain after undergoing right inguinal hernia repair. Has been following with multiple specialist and neurologist. More recently underwent Botox injections to pelvic muscles in June
and since then he has had some chronic issues with urinary urgency and difficulty initiating urine stream. He had a visit with his urologist and patient states bladder scan at that time showed 150 mL. Not consistent with urinary retention however
there was concern for inability to completely empty.
He flew home today from [place] and admits that he purposely avoided drinking fluids as he was concerned for possible urinary retention. He currently denies abdominal pain nor denies the urge to to urinate.
Bladder scan upon arrival showed only 15 cc in his bladder.
50-year-old gentleman appears his stated age, awake and alert, pleasant, appears in no acute distress. Afebrile.
Abdomen is soft, nontender. No palpable masses.
Patient has been reassured that he is not retaining urine and in fact his bladder is empty.
Encouraged to stay well-hydrated on a daily basis and follow-up with urology.
<Dany Roberto MD, Resident - Last Filed: 08/26/25 04:41>
-
Portions of this chart may have been created with voice recognition software.� Occasional wrong word or��sound alike� substitutions may have occurred due to the inherent limitations of voice recognition software.
Discharge Plan
Departure
Prescriptions:
No Action
dicyclomine 20 mg tablet
20 mg PO QID PRN (Reason: abdominal pain) Qty: 10 0RF
Referrals:
Daron Orantes MD [Family Provider, Family Practice]
Interventions
Interventions:
*Risk Screen - Suicide Last Done: 08/26/25 01:55
*General Assessment Last Done: 08/26/25 01:55
*Neglect/Abuse Screening Last Done: 08/26/25 01:55
*ED- Fall Risk Assessment Last Done: 08/26/25 01:55
*ED COVID-19 Vaccine History Last Done: 08/26/25 01:55
*ED Influenza Vaccine History Last Done: 08/26/25 01:55
ED-Male Genitourinary Assessment Last Done: 08/26/25 02:33
Discharge Date and Time
Print Language: NIGERIAN
== END 2025-08-26 04:48 | disposition home or self-care (01) ==
LOC: EMR 01:49
PROVIDERS: EMERGENCY PHYSICIAN Emergency Medicine; FAMILY PHYSICIAN Family Medicine
DX: R39.198 Other difficulties with micturition (principal); G89.29 Other chronic pain; R10.30 Lower abdominal pain, unspecified; Z98.890 Other specified postprocedural states
CPT/HCPCS: 99283

== ENCOUNTER 2025-09-01 18:51 | Emergency (ER) | payer OTHER, SELFPAY ==
[2025-09-01 18:55] VITALS: BP 132/82
[2025-09-01 19:43] VITALS: BMI 26.9
--- NOTE | 2025-09-01 20:05 | ED.GENMED ---
History of Present Illness
General
Chief Complaint: Abdominal Pain
Source: patient
Exam Limitations: none
Time Seen by Provider: 09/01/25 19:20
Nursing documentation reviewed up to this point in time: agreed with
History of Present Illness
History of Present Illness:
Note:
CHIEF COMPLAINT(S)
Severe pelvic pain and difficulty urinating.
HISTORY OF PRESENT ILLNESS
The patient is a 50-year-old male with a history of hernia mesh surgery, who presents with severe pelvic pain and difficulty urinating. He reports a longstanding issue following a hernia mesh placement, which was subsequently removed. The patient
describes experiencing severe pain related to his pudendal nerve, stating that certain movements can trigger worsened symptoms. He reports, 'Its like constricted, like this really bad...you get pain like shooting out.'
Approximately two years ago, the patient consulted an expert on the pudendal nerve, and recently received Botox injections and nerve blocks to alleviate symptoms. However, two to three days after these injections, he began experiencing urinary
retention. The patient states he 'was emptying my bladder 100% before but started to have urinary retention' following treatment. A urologist in [place] performed a urodynamic study and confirmed the absence of adequate bladder contractions,
attributing it to prior bladder spasms and weakened muscle tone from the hernia mesh issue. Despite this, the patient was previously able to void completely by sitting on the toilet.
The patient is currently pushing hard to urinate with minimal success, describing the effort as trying to 'push a thousand-pound block up the wall.' He experiences only small amounts of urine flow. The patient suspects his external urethral
sphincter is tightened due to involvement of the pudendal nerve, saying, 'I probably have a really tight external urethral sphincter because thats what the pudendal nerve does.'
Upon arrival at the hospital, the patient reports pain radiating from his pelvis and significant difficulty urinating, despite being advised previously by the urologist to self-catheterize if necessary. He admits to not frequently self-catheterizing
following the urologists demonstration. Recent fluid intake is minimal due to dehydration. The patient was last assessed five days ago for similar complaints but was not found to have significant urinary retention.
MEDICATIONS
The patient is currently taking 4 mg tizanidine to help manage nerve-related pain.
REVIEW OF SYSTEMS
- Genitourinary: Reports severe difficulty with urination and potential urinary retention.
- Musculoskeletal: Severe pelvic pain associated with pudendal nerve issues.
- Neurological: Pudendal neuralgia with resultant pain exacerbated by movement.
PHYSICAL EXAM
General: Alert, no acute distress.
Skin: Warm, dry.
Head: Normocephalic, atraumatic.
Neck: Supple, trachea midline.
Eye Ears, nose, mouth and throat: Oral mucosa moist.
Cardiovascular: Normal peripheral perfusion, no edema.
Respiratory: Respirations are non-labored.
Gastrointestinal: Abdomen nondistended.
Back: Normal range of motion, normal alignment.
Musculoskeletal: Normal range of motion, normal strength.
Neurological: Alert and oriented to person, place, time, and situation. No focal neurological deficit observed.
Psychiatric: Cooperative, appropriate mood and affect.
PROBLEM LIST
- Acute: Severe pelvic pain, urinary retention
- Chronic: Pudendal neuralgia post-hernia mesh surgery
PLAN
- Perform a bladder scan to assess for urinary retention and volume.
- Evaluate the possibility of additional medication options for nerve pain.
- Discuss potential further management strategies with the urologist team, taking into account the patients complex urological and neurologic presentations.
DIFFERENTIAL DIAGNOSIS
The Differential Diagnosis includes, in no particular order and is not limited to:
1. Pudendal neuralgia
2. Post-surgical adhesions
3. Urinary tract obstruction
4. Neurogenic bladder dysfunction
5. Bladder outlet obstruction
6. Urethral stricture
7. Bladder atony
8. Inguinal neuropathy secondary to surgery
9. Nerve entrapment syndrome
10. Chronic pelvic pain syndrome
CARE-UPDATE
11/16/25 - 21:37
Patient continues to experience urinary hesitancy and urgency. No significant urinary retention noted. Patient is cleared for discharge and advised to follow up with urology for further management.
Disposition:
SUMMARY OF ENCOUNTER
The patient, a 50-year-old male with a complex history related to hernia mesh surgery and resulting pudendal neuralgia, presented to the emergency department with complaints of severe pelvic pain and difficulty urinating. He described substantial
issues with urinary retention, suspecting pudendal nerve involvement affecting his external urethral sphincter. A bladder scan showed he retained about 100 ml of urine, which was not significant for acute retention needing in-hospital intervention.
Given the stable findings and absence of acute distress, the management focused on symptomatic relief and careful monitoring, with instructions for follow-up with his urologist.
DISPOSITION
Discharge.
ASSESSMENT
This patient presents with symptoms suggestive of neurogenic bladder dysfunction secondary to pudendal neuralgia and post-surgical complications. No evidence of acute urinary retention or urinary tract infection was noted.
PLAN
- Discharge home with instructions to monitor symptoms and hydrate adequately.
- Follow up with the urologist for further evaluation and long-term management of urinary symptoms.
PATIENT EDUCATION AND COUNSELING
The patient was advised on the nature of his symptoms, the potential involvement of the pudendal nerve, and the need for ongoing management with his urologist. Instructions on recognizing signs of worsening urinary retention or complications were
provided.
FOLLOW-UP INSTRUCTIONS
The patient is instructed to follow up with the urology department for further management. Return precautions were given in case of significant changes in urinary function or increasing pain.
MEDICAL DECISION MAKING
- Number and Complexity of Problems Addressed:
Chronic conditions affecting care include pudendal neuralgia and previous hernia mesh complications. Differential diagnoses considered included pudendal neuralgia, post-surgical adhesions, urinary tract obstruction, neurogenic bladder dysfunction,
bladder outlet obstruction, urethral stricture, bladder atony, inguinal neuropathy secondary to surgery, nerve entrapment syndrome, and chronic pelvic pain syndrome.
- Data:
Category 1
Non-emergency department records and previous urological assessments were reviewed. External urologic evaluations confirming previous bladder studies were likely considered in management.
Category 3
Discussion of management with the urology team referral for sustained care outside the emergency department was suggested.
DIAGNOSIS
- Neurogenic bladder dysfunction (ICD-10: N31.9)
- Pudendal neuralgia (ICD-10: G54.6)
- Urinary retention, unspecified (ICD-10: R33.9)
Past History
Past History
ED Past Medical History: Psychiatric (Anxiety), Other (Constipation) and Other (R inguinal hernia)
ED Past Surgical History: Other (Hernia right side, Glaucoma sx as child)
Social History
Tobacco: Non-smoker
Alcohol: None
Drug: None
Personal:
Living: alone
Employment: Employed
Phy Exam
Physical Exam
Physical Exam:
.
Course
Orders/Labs/Results
Orders:
Orders
09/01/25 20:30
Urinalysis Reflex To Culture Urgent
Date Specimen was Collected: 09/01/25
Time Specimen was Collected: 20:29
Vital Signs
Initial and Last Documented VS:
Initial Vital Signs
Temp Pulse Resp BP Pulse Ox
98.5 F 97 15 132/82 98
09/01/25 18:55 09/01/25 18:55 09/01/25 18:55 09/01/25 18:55 09/01/25 18:55
Last Documented Vital Signs
Temp Pulse Resp BP Pulse Ox
98.5 F 76 18 126/72 96
09/01/25 18:55 09/01/25 21:46 09/01/25 21:46 09/01/25 21:46 09/01/25 21:46
*Pulse Oximetry
SaO2: 98
Oxygen Mode of Delivery: Room air
Patient hypoxic: no
*Critical Care Note
Total Time (30-74mins, 75-104mins- exclusive of procedures): Not Applicable
ED Attending Note
-
Portions of this chart may have been created with voice recognition software.� Occasional wrong word or��sound alike� substitutions may have occurred due to the inherent limitations of voice recognition software.
Discharge Plan
Departure
Patient Disposition: Home (Routine Discharge)
Date of Disposition: 09/01/25
Time of Disposition: 21:35
Patient with high blood pressure during this ER visit?: Yes
Condition: Good
Discharge Problem:
Urinary urgency
Instructions: BLOOD PRESSURE
Prescriptions:
No Action
dicyclomine 20 mg tablet
20 mg PO QID PRN (Reason: abdominal pain) Qty: 10 0RF
Referrals:
Daron Orantes MD [Family Provider, Family Practice]
Wu Gamez MD [Active, Urology]
Interventions
Interventions:
*Risk Screen - Suicide Last Done: 09/01/25 18:55
*General Assessment Last Done: 09/01/25 18:55
*Neglect/Abuse Screening Last Done: 09/01/25 18:55
*ED- Fall Risk Assessment Last Done: 09/01/25 19:28
*ED COVID-19 Vaccine History Last Done: 09/01/25 18:55
*ED Influenza Vaccine History Last Done: 09/01/25 18:55
*Nursing Disposition Last Done: 09/01/25 21:46
XA-Tzqpku-Ozlfwqpoqr Assessment Last Done: 09/01/25 19:28
Discharge Date and Time
Discharge Date/Time: 09/01/25 22:00
Print Language: YORUBA
[2025-09-01 20:38] LABS: Urine Character Clear (Clear)
[2025-09-01 21:46] VITALS: BP 126/72
== END 2025-09-01 22:00 | disposition home or self-care (01) ==
LOC: EMR 18:51
PROVIDERS: EMERGENCY PHYSICIAN Emergency Medicine; FAMILY PHYSICIAN Family Medicine
DX: R39.15 Urgency of urination (principal); R03.0 Elevated blood-pressure reading, without diagnosis of hypertension
CPT/HCPCS: 99283; 81003

== ENCOUNTER 2025-09-03 23:53 | Emergency (ER) | payer OTHER, SELFPAY ==
[2025-09-03 23:56] VITALS: BP 116/81
--- NOTE | 2025-09-04 03:07 | DOWNTIME ---
There was a [employer] Downtime on 09/04/2025 from 0100 to 09/04/2025 at 0255. Downtime documentation of patient's care, including medication administrations, has been reconciled in the electronic record per guidelines. Refer to the
patient's paper chart under the miscellaneous tab to see printed paper medication records and downtime forms.
--- NOTE | 2025-09-04 03:28 | ED.GENMED ---
History of Present Illness
General
Chief Complaint: Male Genito-Urinary Symptoms
Source: patient
Exam Limitations: none
Time Seen by Provider: 09/04/25 03:09
Nursing documentation reviewed up to this point in time: agreed with
History of Present Illness
History of Present Illness:
Note:
CHIEF COMPLAINT(S)
Pelvic pain, urinary retention, bladder dysfunction, and penile pain following Botox injections.
HISTORY OF PRESENT ILLNESS
The patient is a 50-year-old male with a history of problems related to an inguinal hernia mesh, presenting with pelvic pain, urinary retention, and bladder dysfunction. He reports that historically he has experienced swelling and overactivity in
the bladder, leading to difficulties with urination, penile swelling, and episodes described as priapism. He initially developed these symptoms following mesh implant issues.
The patient underwent Botox injections (400 units) into the obturator muscle, trigone muscle, and bilateral pelvic floor muscles for treatment. He noted improvement initially, but subsequently, he experienced urinary retention and could not urinate
effectively. Following these injections, he also developed continuous urethral urgency and a lack of sensation in the bladder. He is on laxatives due to a long-standing inability to pass stool, indicated as an organic cause for constipation.
The patient has consulted multiple specialists, including in [place], [place], [facility], and a urologist in [place], but finds his current condition incapacitating, especially the pain when sitting and the inability to urinate
effectively. His symptoms have included pudendal neuralgia and pelvic floor dysfunction. He was advised by a urologist to hydrate well and has been advised also on potential further urologic interventions, such as InterStim.
The patient expresses severe pain and distress, especially when sitting, feeling consistent urgency in the urethra, and has sought further investigation options, such as MRI, for pudendal neuralgia. Despite ongoing care and consultations, the
patients symptoms remain disabling.
SOCIAL DETERMINANTS AFFECTING HEALTH
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 He expresses
the need for continuous support and transportation assistance due to the severity of his symptoms.
REVIEW OF SYSTEMS
- Genitourinary: Swelling of the penis, urinary retention, lack of bladder sensation, continuous urgency in the urethra, priapism episodes post-treatment
- Gastrointestinal: Chronic constipation managed with laxatives, inability to pass stool for several days
- Musculoskeletal: Severe pelvic and lower abdominal pain, increased on sitting
- Neurological: Symptoms consistent with pudendal neuralgia
PHYSICAL EXAM
General: Alert, experiencing chronic severe pain.
Skin: Warm, dry.
Head: Normocephalic, atraumatic.
Neck: Supple, trachea midline.
Eye Ears, nose, mouth and throat: Oral mucosa moist.
Cardiovascular: Normal peripheral perfusion, No edema.
Respiratory: Respirations are non-labored.
Gastrointestinal : Abdomen nondistended. No tenderness to palpation in all quadrants. Good bowel sounds
Back: Normal range of motion, Normal alignment.
Musculoskeletal: Limited ROM due to pain, especially when sitting.
Neurological: Alert and oriented, pain noted in distribution of pudendal nerve.
Psychiatric: Cooperative, mood reflective of chronic pain distress.
PROBLEM LIST
Acute Problems:
- Pelvic pain associated with pudendal neuralgia
- Urinary retention and bladder dysfunction post-Botox injection
- Priapism episodes
Chronic Problem:
- Inguinal hernia mesh complications
PLAN
1. Encourage hydration to ensure diuresis and prevent further urinary retention.
2. Reevaluate with urologist for potential advanced interventions, including consideration of InterStim.
3. Consideration of imaging such as MRI for detailed assessment of pelvic structures and potential pudendal nerve involvement.
4. Continuation of laxatives for constipation management.
5. Referral to pain management specialists for pudendal neuralgia symptoms.
6. Discuss transportation assistance for medical appointments due to the inability to sit comfortably.
DIFFERENTIAL DIAGNOSIS
The Differential Diagnosis includes, in no particular order and is not limited to:
- Pudendal neuralgia
- Pelvic floor dysfunction
- Urinary tract infection
- Bladder outlet obstruction
- Post-Botox injection complications
- Mesh-related nerve involvement
- Interstitial cystitis
- Prostatitis
- Urethral stricture
- Chronic constipation-related pelvic pain
Disposition:
SUMMARY OF ENCOUNTER
A 50-year-old male presented to the emergency department with difficulty urinating. The patient has a history of surgery that has resulted in intermittent urinary retention. Upon arrival, the patient had a bladder scan, and several scans were done
by the nursing staff, revealing post-void residuals (PVR) of less than 40 mL on all scans. The patient has visited the emergency department multiple times over the past few weeks and has been under the care of a urologist. He was due for a follow-up
with his urologist in [facility]. Despite his symptoms, the patient refuses further catheterization at this time.
PLAN
The patient is encouraged to follow up with his urologist as scheduled to manage his ongoing urinary retention issues.
MEDICAL DECISION MAKING
-Number and Complexity of Problems Addressed: Chronic conditions affecting care. Past medical history includes previous surgery and pudendal neuralgia. Differential diagnosis includes pudendal neuralgia, pelvic floor dysfunction, urinary tract
infection, bladder outlet obstruction, post-surgical complications, and interstitial cystitis.
- Risk: Consideration of admission/observation was part of the patients management plan given the complexity and risk of his urinary retention. However, the clinical decision was to proceed with outpatient management in conjunction with a follow-up
urologic evaluation.
DIAGNOSIS
- Urinary retention post-surgery (R33.8)
- Pudendal neuralgia (G58.8)
Past History
Past History
ED Past Medical History: Psychiatric (Anxiety), Other (Constipation) and Other (R inguinal hernia)
ED Past Surgical History: Other (Hernia right side, Glaucoma sx as child)
Social History
Tobacco: Non-smoker
Alcohol: None
Drug: None
Personal:
Living: alone
Employment: Employed
Phy Exam
Physical Exam
Physical Exam:
.
Course
Vital Signs
Initial and Last Documented VS:
Initial Vital Signs
Temp Pulse Resp BP Pulse Ox
97.9 F 91 20 116/81 98
09/03/25 23:56 09/03/25 23:56 09/03/25 23:56 09/03/25 23:56 09/03/25 23:56
Last Documented Vital Signs
Temp Pulse Resp BP Pulse Ox
97.9 F 91 20 116/81 98
09/03/25 23:56 09/03/25 23:56 09/03/25 23:56 09/03/25 23:56 09/03/25 23:56
*Pulse Oximetry
SaO2: 98
Oxygen Mode of Delivery: Room air
Patient hypoxic: no
*Critical Care Note
Total Time (30-74mins, 75-104mins- exclusive of procedures): Not Applicable
ED Attending Note
-
Portions of this chart may have been created with voice recognition software.� Occasional wrong word or��sound alike� substitutions may have occurred due to the inherent limitations of voice recognition software.
Discharge Plan
Departure
Patient Disposition: Home (Routine Discharge)
Date of Disposition: 09/04/25
Time of Disposition: 03:30
Patient with high blood pressure during this ER visit?: Yes
Discharge Problem:
Pudendal neuralgia
Instructions: BLOOD PRESSURE, Nerve blocks
Prescriptions:
No Action
dicyclomine 20 mg tablet
20 mg PO QID PRN (Reason: abdominal pain) Qty: 10 0RF
Referrals:
Daron Orantes MD [Family Provider, Family Practice]
Activity Restrictions/Additional Instructions:
Thank You for choosing [facility].
It was a pleasure meeting you and taking part in your care. We hope for your continued healing and wellness.
Please read discharge instructions in their entirety. However, they are for general education and may not describe your exact diagnosis at discharge. Information on your ER visit and medical conditions were discussed with you along with appropriate
follow up information...
If indicated, please take your medications as instructed and indicated on discharge paperwork.
Please schedule a follow up appointment as directed. Call to schedule an appointment
Please return to the emergency department with ANY change in, persisting, or worsening of symptoms. If any of your symptoms do not improve, or persist, or become more severe within 6-12 hours, please return to the emergency department for further
care.
Please return to the emergency department if you develop a headache, neck pain/stiffness, fever greater than 100.4F, chest pain, shortness of breath, persistent nausea, vomiting, slurred speech, difficulty walking, numbness/tingling, weakness, signs
of infection or any other symptoms that are worrisome to you.
If you have any questions or concerns please do not hesitate to call the Hospital at .
Interventions
Interventions:
*Risk Screen - Suicide Last Done: 09/03/25 23:56
*General Assessment Last Done: 09/03/25 23:56
*Neglect/Abuse Screening Last Done: 09/03/25 23:56
*ED- Fall Risk Assessment Last Done: 09/03/25 23:56
*ED COVID-19 Vaccine History Last Done: 09/03/25 23:56
*ED Influenza Vaccine History Last Done: 09/03/25 23:56
ED-Male Genitourinary Assessment Last Done: 09/04/25 01:30
Discharge Date and Time
Print Language: FIJIAN
[2025-09-04 03:43] VITALS: BP 117/74
== END 2025-09-04 03:44 | disposition home or self-care (01) ==
LOC: EMR 23:53
PROVIDERS: EMERGENCY PHYSICIAN Student in an Organized Health Care Education/Training Program; FAMILY PHYSICIAN Family Medicine
DX: M79.2 Neuralgia and neuritis, unspecified (principal); R33.9 Retention of urine, unspecified; N48.89 Other specified disorders of penis; Z98.890 Other specified postprocedural states
CPT/HCPCS: 99283

== ENCOUNTER 2025-09-08 10:01 | Emergency (ER) | payer OTHER, SELFPAY ==
[2025-09-08] VITALS (7 sets, daily range): BP systolic 117–127; BP diastolic 76–92; BMI 23.0
--- NOTE | 2025-09-08 10:41 | EDRN ---
I. Nadja MENEZES in room w/ pt. Pt states he does not feel his bladder when full and unable to empty his bladder. Pt inc when standing and bowel issues as well. Pt had hernia mesh placed that started the symptoms and was treated for bowel and
bladder issues w/ botox and vibrator/electric shock and dietary/laxatives regimen. Pt post RX was urinating fine w/ emptying bladder, good function all well until 07/11 this year. Pt saw a pelvic floor urinary commercial real estate broker and another urologist in
[place], thought urine mesh part still inside pt, had urodynamic study. Pt unable to void standing. All well with bladder per urologist in [place]. pt had a uroscopy and cystoscopy. Pt got botox back in Nov. Last botox given in different area in Jun w/
epidural injections/blocks and pt next day got pain in ishial spine. Pt has urinary retention. Pt has no sensation afterwards on penus outside. Pt here for possible urinary reptention. Pt is also here now for no BM x 3 days, eating and drinking
though very little. Pain also in abdomen, N/V, and distension w/ abdomen hard. Pt also has lower back pain. Pt usually has BM every day.
[2025-09-08 11:17] LABS: Hematocrit 39.8 % (39.0-52.0); Hemoglobin 13.7 g/dL (13.0-18.0); Mean Corp Hgb Conc. 34.4 g/dL (33.0-37.0); Mean Corpuscular Volume 81.7 fL (80.0-94.0); Nucleated Red Blood Cells % 0 % (-); Platelet Count 186 10^3/uL (130-400); Red Cell Dist. Width 12.3 % (11.5-14.5)
[2025-09-08 11:32] LABS: ALT (SGPT) 20 U/L (0-50); AST (SGOT) 20 U/L (17-59); Albumin 4.6 g/dl (3.5-5.0); Alkaline Phosphatase 41 U/L (38-126); Blood Urea Nitrogen 9 mg/dl (9-20); Calcium 9.3 mg/dl (8.4-10.2); Carbon Dioxide 30 mmol/L (22-30); Chloride 103 mmol/L (98-107); Estimated Creatinine Clearance 102 ml/min; Glucose 98 mg/dl (70-99); Lipase 367 U/L (23-300); Potassium 3.9 mmol/L (3.5-5.1); Sodium 138 mmol/L (135-145); Total Protein 7.5 g/dl (6.3-8.2); eGFR > 60.00
--- NOTE | 2025-09-08 12:30 | ED.GENMED ---
History of Present Illness
General
Chief Complaint: Male Genito-Urinary Symptoms
Source: patient
Exam Limitations: none
Time Seen by Provider: 09/08/25 10:28
Nursing documentation reviewed up to this point in time: agreed with
History of Present Illness
History of Present Illness:
The patient is a 50-year-old male with a history of hernia mesh surgery, who presents with inability to urinate, 'urine retention and pelvic floor dysfunction.'
He states that he started having issues with urinary incontinence since the hernia mesh surgery, but without retention. He experienced improved urinary function after dietary changes and biofeedback therapy. However, after receiving a pudendal nerve
block and a Botox injection to treat suspected residual hernia mesh complications, he experienced new onset of urinary retention and sensory loss in the penis. The urinary retention started the day after the procedure. The patient underwent
urodynamic studies confirming a lack of bladder contraction force and was advised to self-catheterize due to these findings. He was provided supplies to do this but he states he cannot self catheterize due to 'the nerve that supplies the 'external
urethral sphincteris too tight' and it's too painful.
He states he has to bear down so much to urinate it's causing him abdominal pain and affecting his bowels, reporting constipation for the past three days. feeling as if he can't have a bowel movement.
He denies fever/chills, denies n/v.
Past History
Past History
ED Past Medical History: Psychiatric (Anxiety), Other (Constipation) and Other (R inguinal hernia)
ED Past Surgical History: Urological (Pudendal nerve block, Botox injection, 'disynergetic defecation') and Other (Hernia right side, Glaucoma sx as child)
Social History
Tobacco: Non-smoker
Alcohol: None
Drug: None
Personal:
Living: alone
Employment: Employed
Review of Systems
Review of Systems
Allergies reviewed?: Yes
All Other Systems: ROS reviewed and negative except as documented in HPI and ROS
Phy Exam
Physical Exam
Physical Exam:
GENERAL: No acute distress. A&Ox3.
CONSTITUTIONAL: Afebrile.
EYES: clear, conjunctivae normal
ENMT: moist mucus membranes, Pharynx nl
RESPIRATORY: Regular respirations, nonlabored, lungs clear.
CARDIOVASCULAR: Regular rate and rhythm, no murmurs, no rubs.
GI: Soft, nontender, normal BS
MUSCULOSKELETAL: Moves with ease. Well perfused.
SKIN: Warm, dry, pink
PSYCH: Normal mood and affect. Well kept, interactive and appropriate
NEUROLOGIC: Awake, alert and oriented. No focal neurological deficits
Course
Orders/Labs/Results
Orders:
Orders
09/08/25 10:53
Bladder Scan- Treatment ONCE
09/08/25 11:11
Complete Blood Count/With Diff Urgent
Comprehensive Metabolic Panel Urgent
Lipase Urgent
09/08/25 12:47
Urinalysis Reflex To Culture Urgent
Date Specimen was Collected: 09/08/25
Time Specimen was Collected: 12:43
09/08/25 13:12
CT Abd/Pel (IV only)-DH only Urgent
Comment:
Reason For Exam: difficulty urinating hx pudendal neuralgia
09/08/25 15:09
Magnesium Citrate [Citroma] 300 ml PO ONCE ONE
09/08/25 16:21
Lidocaine 2% [Lidocaine Uro-Jet 2%] 1 syringe TOPICAL NOW STA
Abnormal Lab Results
09/08/25
11:11
WBC 3.5 L 10^3/uL
(4.8-10.8)
Monocytes % 10.2 H %
(1.7-9.3)
Lipase 367 H U/L
(23-300)
09/08/25 11:11
09/08/25 11:11
Vital Signs
Initial and Last Documented VS:
Initial Vital Signs
Temp Pulse Resp BP Pulse Ox
98.4 F 77 16 127/76 96
09/08/25 10:03 09/08/25 10:03 09/08/25 10:03 09/08/25 10:03 09/08/25 10:03
Last Documented Vital Signs
Temp Pulse Resp BP Pulse Ox
98.4 F 68 16 127/89 99
09/08/25 10:03 09/08/25 16:15 09/08/25 16:15 09/08/25 16:15 09/08/25 16:15
MDM/Problems Addressed
Differential Diagnosis Includes:
Pudendal neuralgia, pelvic floor dysfunction, urinary tract infection, acute urine retention, urethral stricture,
MDM/Problems Addressed:
The patient is a 50-year-old male with a history of hernia mesh surgery, who presents with inability to urinate, 'urine retention and pelvic floor dysfunction.'
He states that he started having issues with urinary incontinence since the hernia mesh surgery, but without retention. He experienced improved urinary function after dietary changes and biofeedback therapy. However, after receiving a pudendal nerve
block and a Botox injection to treat suspected residual hernia mesh complications, he experienced new onset of urinary retention and sensory loss in the penis. The urinary retention started the day after the procedure. The patient underwent
urodynamic studies confirming a lack of bladder contraction force and was advised to self-catheterize due to these findings. He was provided supplies to do this but he states he cannot self catheterize due to 'the nerve that supplies the 'external
urethral sphincteris too tight' and it's too painful.
He states he has to bear down so much to urinate it's causing him abdominal pain and affecting his bowels, reporting constipation for the past three days. feeling as if he can't have a bowel movement.
He denies fever/chills, denies n/v.
Afebrile, NAD
Pt seen and evaluated here for similar symptoms on 09/04, 09/01, 08/[address] abd/pelvis 7/16/25 which was unremarkable save for mild prostate hypertrophy
Bladder scan reveals minimal urine. Pt states he just urinated but had to bear down 'so hard.'
CBC normal
CMP: normal
Lipase minimally elevated.
U/A neg
Problems:
- Genitourinary: urinary retention, lack of bladder sensation
- Gastrointestinal: Chronic constipation managed with laxatives, inability to pass stool for 3 days
- Musculoskeletal: Severe pelvic and lower abdominal pain, increased on sitting
- Neurological: Symptoms consistent with pudendal neuralgia
3:00 PM:
CAT scan abdomen pelvis radiology report read: IMPRESSION:
No renal or ureteral calculus. No bladder calculus. No hydroureteronephrosis or perinephric stranding to suggest obstructive uropathy. There are innumerable tiny bilateral renal cysts, also seen previously, without apparent significant interval
change. No dominant mass. No bladder wall thickening. Prostate gland appears within normal limits.
No acute inflammatory process within the abdomen or pelvis. No bowel obstruction.
Multiple stable chronic findings are demonstrated, as detailed above, related to the spleen and peritoneum. Although exact etiology remains uncertain, stability since October 2024 supports a benign process. As stated previously, additional
characterization may be considered with MRI examination. Otherwise, follow-up surveillance imaging may be considered in one year.
3:30 p.m.
Patient now has 325 mL of urine in bladder, he is getting up to urinate
Postvoid bladder scan:12 ml
He asked about placing Martines catheter. Not highly recommended as it puts him at risk for infection. When we discussed it, he admitted his OR Urologist told him the same thing. He says he was told he will simply have to strain as he has been doing to
get the urine out.
He was recommended to self cath but states he can't get the catheter past the sphincter...too painful.
He states he couldn't get appointment with Urology Dr. Sanabria until next month. He is contacting his OR Urologist to see if he can be seen sooner.
Texted Dr. Sim Urologist inspector [employer] to see if he could get pt appointment moved up.
Unlikely due to holidays and all are booked up. Suggested he call office in a.m. and ask if Elly can move his appt up
He agrees most likely from Botox and pelvic floor dysfunction, 'may just take time.'
Pt confirms that he has been told all this.
Offered Uro Jet and to guide him to self cath, he states the nurse at the OR Urology office watched him do it and he did it well, but when he got home he couldn't do it. Feels the he can't get the cath past the 'sphincter.' Again offered to watch
him straight cath and he refuses, request we send him home with the Urojet and he'll try himself.
He is already on Flomax
Discussed repositioning and making several, not just one attempt to pass the catheter.
Nothing more to do on an emergency standpoint.
Pt states he expecting delivery of home bladder scan he will use
Chronic conditions affecting care:
- Pelvic pain associated with pudendal neuralgia,- Urinary retention and bladder dysfunction post-Botox injection
Chronic Problem:
- Inguinal hernia mesh complications
*Pulse Oximetry
SaO2: 100
Oxygen Mode of Delivery: Room air
Patient hypoxic: not evaluated
*Critical Care Note
Total Time (30-74mins, 75-104mins- exclusive of procedures): Not Applicable
ED Attending Note
-
Portions of this chart may have been created with voice recognition software.� Occasional wrong word or��sound alike� substitutions may have occurred due to the inherent limitations of voice recognition software.
Discharge Plan
Departure
Patient Disposition: Home (Routine Discharge)
Date of Disposition: 09/08/25
Time of Disposition: 16:34
Patient with high blood pressure during this ER visit?: No
Condition: Good
Discharge Problem:
Difficulty in urination
Instructions: How to use a catheter to empty the bladder in males
Prescriptions:
No Action
dicyclomine 20 mg tablet
20 mg PO QID PRN (Reason: abdominal pain) Qty: 10 0RF
Referrals:
Daron Orantes MD [Family Provider, Family Practice]
Wu Gamez MD [Active, Urology] - Keep scheduled appt
Activity Restrictions/Additional Instructions:
As we discussed, insert the gel from the Uro-Jet into your penis prior to trying to self cath.
If you have trouble you need to reposition the penis, maybe pull up on it, and reposition the catheter and try several times before giving up.
Keep your appointment with urology.
Call Dr. Sanabria's office tomorrow to see if he can get you in sooner but because of the upcoming holiday and there booked schedules, it may not be possible.
Use your home bladder scan as we discussed.
Interventions
Interventions:
*Risk Screen - Suicide Last Done: 09/08/25 10:03
*General Assessment Last Done: 09/08/25 10:59
*Neglect/Abuse Screening Last Done: 09/08/25 10:03
*ED- Fall Risk Assessment Last Done: 09/08/25 10:59
*ED COVID-19 Vaccine History Last Done: 09/08/25 10:59
*ED Influenza Vaccine History Last Done: 09/08/25 10:59
*Nursing Disposition Last Done: 09/08/25 17:02
ED-Male Genitourinary Assessment Last Done: 09/08/25 11:10
Discharge Date and Time
Discharge Date/Time: 09/08/25 17:03
Print Language: CROATIAN
--- NOTE | 2025-09-08 12:50 | EDRN ---
Goyo Tucker [employer] in to see pt.
[2025-09-08 13:01] LABS: Urine Character Clear (Clear)
[2025-09-08] MEDS: LIDOCAINE URO-JET 2% 1 SYRINGE TOPICAL (16:41)
[2025-09-08] MEDS: CITROMA 300 ML PO (16:41)
== END 2025-09-08 17:03 | disposition home or self-care (01) ==
LOC: EMR 10:01
PROVIDERS: Registered Nurse; EMERGENCY PHYSICIAN Emergency Medicine; FAMILY PHYSICIAN Family Medicine
DX: N40.1 Benign prostatic hyperplasia with lower urinary tract symptoms (principal); R33.8 Other retention of urine
CPT/HCPCS: 99284; 74177; 80053; 81003; 83690; 85025; Q9967